=== PATIENT | female | born 1990 | race Caucasian/White ===

== ENCOUNTER 2017-08-17 23:59 | Emergency (ER) | payer SELFPAY ==
[2017-08-18] MEDS ORDERED: ACETAMINOPHEN 325 MG TABLET PO ONE (00:13)
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
[2017-08-18 01:27] VITALS: BP 121/75
== END 2017-08-18 01:27 | disposition home or self-care (01) ==
LOC: ER 23:59
DX: S09.90XA Unspecified injury of head, initial encounter (principal); S16.1XXA Strain of muscle, fascia and tendon at neck level, initial encounter; R51 Headache; M54.2 Cervicalgia; Y04.2XXA Assault by strike against or bumped into by another person, initial encounter
CPT/HCPCS: 70450; 72125; 99284